=== PATIENT | female | born 1960 | race Caucasian/White ===

== ENCOUNTER → 2020-01-11 12:32 | Outpatient (CLI) | payer OTHER, SELFPAY ==
--- NOTE | ~2020-01-11 | XR_ITS ---
EXAMINATION: XR knee LT 2V DATE: 01/11/2020 12:47 INDICATION: Left knee pain and swelling. TECHNIQUE: 2 views of left knee were obtained. COMPARISON: None. FINDINGS: Bone alignment is normal. No fracture. There is mild tricompartmental osteoarthritis. There is a moderate-sized knee joint effusion. IMPRESSION: 1. Mild left knee osteoarthritis. 2. Moderate-sized left knee joint effusion. Reviewed, dictated and finalized at location A. ER FIRST
== END ==
PROVIDERS: PCP Family Medicine; Visit Provider Family Medicine
DX: M79.89 Other specified soft tissue disorders (principal); M17.12 Unilateral primary osteoarthritis, left knee; M25.462 Effusion, left knee
CPT/HCPCS: 73560

== ENCOUNTER 2023-05-18 12:31 | Outpatient (CLI) | payer OTHER, SELFPAY ==
[2023-05-18 19:16] LABS: Hematocrit 41.2 % (37.0-47.0); Hemoglobin 13.4 g/dL (12.0-15.0); Mean Corpuscular HGB Conc 32.5 g/dl (32-36); Mean Corpuscular Hemoglobin 29.5 pg (26-34); Mean Corpuscular Volume 90.5 fl (80-100); Mean Platelet Volume 10.8 fl (7.4-10.4); Platelet Count Result 240 k/mm3 (150-375); Red Blood Count 4.55 M/mm3 (4.2-5.4); White Blood Count 7.1 K/mm3 (4.5-10.0)
[2023-05-18 19:34] LABS: Alanine Aminotransferase 40 U/L (6-35); Albumin Level 4.4 g/dL (3.5-5.1); Alkaline Phosphatase 102 U/L (38-126); Anion Gap 8 mmol/L (8-16); Aspartate Amino Transferase 44 U/L (14-36); Bilirubin,Total 0.6 mg/dL (0.2-1.3); Blood Urea Nitrogen 14 mg/dL (7-17); Carbon Dioxide 30 mmol/L (22-30); Chloride 96 mmol/L (98-107); Estimated Glomerular Filt Rate 42; Glucose 105 mg/dL (65-110); Sodium 134 mmol/L (137-145)
== END 2023-05-18 12:32 | disposition home or self-care (01) ==
LOC: ANHGOSHLAB 12:32
PROVIDERS: PCP Family Medicine; Visit Provider Nurse Practitioner
DX: R50.9 Fever, unspecified (principal)
CPT/HCPCS: 36415; 80053; 85027

== ENCOUNTER → 2023-05-18 12:43 | Outpatient (CLI) | payer OTHER, SELFPAY ==
--- NOTE | ~2023-05-18 | XR_ITS ---
Clinical Indication: Cough, shortness of breath PA and lateral views of the chest: Comparison: 11/11/2006 Findings: The lungs are clear, without evidence of focal consolidation or pleural effusion. Cardiome diastinal silhouette is within normal limits. Bones stable S-shaped scoliosis of the spine. Impression: Clear lungs. Stable scoliosis. Reviewed, dictated and finalized at location . Impression: Clear lungs. Stable scoliosis.
== END ==
PROVIDERS: PCP Family Medicine; Visit Provider Nurse Practitioner
DX: R05.9 Cough, unspecified (principal); R06.02 Shortness of breath; R50.9 Fever, unspecified; M41.9 Scoliosis, unspecified
CPT/HCPCS: 71046

== ENCOUNTER → 2023-06-10 16:25 | Outpatient (CLI) | payer OTHER, SELFPAY ==
--- NOTE | ~2023-06-10 | MM_ITS ---
EXAMINATION: MM screening avila BI w manjit HISTORY: Screening mammogram TECHNIQUE: Craniocaudal and mediolateral oblique 3-D tomosynthesis images were obtained and synthetic 2-D images were generated. CAD analysis was submitted and interpreted. COMPARISON: No prior mammogram is available for comparison at this institution. BREAST PARENCHYMAL COMPOSITION: The breasts are heterogeneously dense, which may obscure small masses . FINDINGS: There is no evidence of suspicious mass, calcification, or architectural distortion to sugg est malignancy in either breast. There has been no suspicious interval change. IMPRESSION: 1. No mammographic evidence of malignancy. 2. Recommend routine screening mammography in one year. BI-RADS Category 1: Negative Reviewed, dictated and finalized at location A.
== END ==
PROVIDERS: PCP Family Medicine; Visit Provider Family Medicine
DX: Z12.31 Encounter for screening mammogram for malignant neoplasm of breast (principal)
CPT/HCPCS: 77063; 77067

== ENCOUNTER 2023-08-08 05:53 | Day surgery (SDC) | payer OTHER, SELFPAY ==
[2023-04-26 11:02] VITALS: BMI 30.2
[2023-07-26 08:14] VITALS: BMI 30.2
[2023-08-08] MEDS: LACTATED RINGERS 1,000 ML 150 ML IV CONT (06:20)
--- NOTE | 2023-08-08 06:53 | P.HP_ITS ---
History of Present Illness History of Present Illness Consent: Risks, benefits, and alternatives have been discussed and questions answered. Patient agrees to proceed with procedure. Chief complaint: Neoplasm Screening Narrative: Valery Bocanegra is a 63 year old female Ten years ago referred now for colon cancer screening. She does have a family history of polyps. Review of Systems Review of Systems: All systems reviewed & are unremarkable except as noted in HPI and below PMFSH Past Medical History Medical History History of psoriasis had a psoriatic lesion on neck around 2017 Surgical History Surgical History History of endometrial ablation 2011-Dr. Franco Family History Family History Mother Hypertension Diabetes mellitus Father Diabetes mellitus Cerebrovascular accident Heart disease Grandparent Diabetes mellitus Heart disease Sibling Cancer Social History Social History Social History: Caffeine- none Smoking status: Never smoker Alcohol intake: current Alcohol use details: socially Substance use: never Substance use type: does not use Lack of Transportation: No Lack of Food: Never True Current Housing: I Have Housing Concerned About Future Housing: No Difficulty Paying Gas/Electric Bills: No Difficulty Paying for Meds: No Currently Unemployed: No Education: Decline to Answer Difficulty w/ Childcare or Family Care: No Living arrangements: with family Additional living arrangements comments: 28 year old Daughter Occupation/Education: occupation 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 Gender identity (if verbalized by the patient): Female Sexual Orientation (if Verbalized by the Patient): Straight or Heterosexual Spiritual care concerns: No Meds Home Medications and Allergies Home Medications Medication Instructions Recorded Confirmed Type tofacitinib 10 mg tablet (Xeljanz) 10 mg PO ONCE 01/04/22 08/08/23 History Allergies Allergy/AdvReac Type Severity Reaction Status Date / Time Penicillins Allergy Unknown family Verified 08/08/23 06:12 allergy Exam Resp: Auscultation: clear to auscultation bilaterally Cardio: Rate: regular rate Rhythm: regular rhythm GI: GI Palp: Yes Soft to palpation and No Tenderness to palpation present (GI) Assessment and Plan Assessment and plan (1) Screen for colon cancer: Code(s): Z12.11 - Encounter for screening for malignant neoplasm of colon Status: Acute Assessment and Plan: Colonoscopy with possible biopsy or polypectomy or cautery or injection of substances.
--- NOTE | 2023-08-08 07:05 | WPDANESEPPF ---
Anes - Initial Pre Proc Eval Procedure: Operation Date: 08/08/23 07:30 Proposed Procedures p Screening Colonoscopy - Frederick Jones MD Date/Time: 08/08/23 07:05 Surgeon: Frederick Jones MD Pre Op Diagnosis: Neoplasm Screening Patient Data Age: 63 Gender: F Height: 1.57 m Weight: 71 kg Allergies Allergy/AdvReac Type Severity Reaction Status Date / Time Penicillins Allergy Unknown family Verified 08/08/23 06:12 allergy Home Medications Medication Instructions Recorded Confirmed Type tofacitinib 10 mg tablet (Xeljanz) 10 mg PO ONCE 01/04/22 08/08/23 History Patient hx anesthesia problems: none Family hx anesthesia problems: none Results Review: All pre-operative results and documents have been reviewed as part of the pre-operative evaluation. [facility] Past Medical History Medical History History of psoriasis had a psoriatic lesion on neck around 2017 Surgical History Surgical History History of endometrial ablation 2011-Dr. Franco Family History Family History Mother Hypertension Diabetes mellitus Father Diabetes mellitus Cerebrovascular accident Heart disease Grandparent Diabetes mellitus Heart disease Sibling Cancer Social History Social History Social History: Caffeine- none Smoking status: Never smoker Alcohol intake: current Alcohol use details: socially Substance use: never Substance use type: does not use Lack of Transportation: No Lack of Food: Never True Current Housing: I Have Housing Concerned About Future Housing: No Difficulty Paying Gas/Electric Bills: No Difficulty Paying for Meds: No Currently Unemployed: No Education: Decline to Answer Difficulty w/ Childcare or Family Care: No Living arrangements: with family Additional living arrangements comments: 28 year old Daughter Occupation/Education: occupation 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 Gender identity (if verbalized by the patient): Female Sexual Orientation (if Verbalized by the Patient): Straight or Heterosexual Spiritual care concerns: No Anes - Eval Final PreProcedure Day of Procedure 08/08/23 07:05 Patient weight: overweight Heart: regular rate and rhythm Lungs: clear to auscultation Airway: Mallampati scale class II Neurological: alert and oriented Last oral intake: >/= 8 hours ASA classification: II Emergent: no Anesthetic plan: proceed Anesthesia type and monitoring: general GIVS and standard monitoring Results Review: All pre-operative results and documents have been reviewed as part of the pre-operative evaluation. Informed Consent: The patient's anesthetic plan and its attendant risks and benefits were discussed with the patient/family/POA. Questions were solicited and answers provided to the satisfaction of the patient/family/POA.
[2023-08-08 07:18] VITALS: BP 129/91; PULSE 85; RESP 20; TEMP 36.7; O2SAT 100
[2023-08-08 07:42] VITALS: BP 112/61; PULSE 85; RESP 20; O2SAT 97
[2023-08-08 07:52] VITALS: BP 108/72; PULSE 73; RESP 20; O2SAT 97
[2023-08-08 08:02] VITALS: BP 137/77; PULSE 66; RESP 20; O2SAT 97
--- NOTE | 2023-08-08 10:35 | WPDANESPN ---
Anes - Prog Note Post-Op Date/Time: 08/08/23 10:35 Cardiovascular status: normal Respiratory status: normal Airway patency: baseline Mental status: baseline Post-Op hydration status: normal Vital Signs: Last Vital Signs Temp 36.7 C 08/08/23 07:18 Pulse 66 08/08/23 08:02 Resp 20 08/08/23 08:02 BP 137/77 08/08/23 08:02 Pulse Ox 97 08/08/23 08:02 O2 Del Method Room Air 08/08/23 08:02 Pain Score (VAS): 0 I/O: Intake & Output 08/07/23 08/08/23 08/08/23 23:59 07:59 15:59 Intake Total 400 100 Balance 400 100 Post-procedural complaints: none Patient Feedback: Patient satisfied with anesthetic care. Other Findings: Patient vital signs back to baseline. Patient denies nausea and vomiting. Patient's pain under control. Patient OK for discharge.
== END 2023-08-08 08:10 | disposition home or self-care (01) ==
PROVIDERS: PCP Family Medicine; Visit Provider Internal Medicine Gastroenterology
PROC: 0DJD8ZZ Inspection of Lower Intestinal Tract, Via Natural or Artificial Opening Endoscopic (ICD-10-PCS; CPT 45378; principal; 2023-08-08 07:30)
DX: Z12.11 Encounter for screening for malignant neoplasm of colon (principal); K57.30 Diverticulosis of large intestine without perforation or abscess without bleeding; K64.8 Other hemorrhoids
CPT/HCPCS: 45378

== ENCOUNTER 2025-08-02 13:41 | Outpatient (CLI) | payer OTHER, SELFPAY ==
--- NOTE | ~2025-08-02 | MM_ITS ---
EXAMINATION: MM screening avila BI w manjit HISTORY: Screening TECHNIQUE: Craniocaudal and mediolateral oblique 3-D tomosynthesis images were obtained and synthetic 2-D images were generated. CAD analysis was submitted and interpreted. COMPARISON: 06/10/2023 BREAST PARENCHYMAL COMPOSITION: The breasts are heterogeneously dense, which may obscure small masses. FINDINGS: There is no evidence of suspicious mass, calcification, or architectural distortion to suggest malignancy in either breast. IMPRESSION: 1. No mammographic evidence of malignancy. 2. Recommend routine screening mammography in one year. BI-RADS Category 1: Negative Reviewed, dictated and finalized at location B.
--- OUTSIDE RECORDS SUMMARY | 2025-08-02 13:45 | XMS_ITS | Clinical Summary ---
Author Organization [facility] Address [address] [place] [address] Care Team Providers Care Traffic Engineering Technician Name Role Phone Luis Albertoblancashauna Sally Jelly Primary Care Provider [phone] Allergies Active Allergy Reactions Criticality Noted Date Comments Penicillins Shortness of breath High Medications Symbicort 80-4.5 mcg/actuation inhaler INL 2 PFS PO Q 12 H 01/07/2020 Active multivitamin/iro n/folic acid (CENTRUM WOMEN ORAL) Take by mouth Active tofacitinib (Xeljanz XR) 11 mgIndications:Rh eumatoid arthritis involving multiple sites with positive rheumatoid factor (HCC) Take 1 tablet (11 mg total) by mouth daily 90 tablet 1 02/19/2025 Active Active Problems Problem Noted Date Diagnosed Date Rheumatoid arthritis involvi ng multiple sites with positive rheumatoid factor 09/04/2021 Asthma 04/10/2020 Resolved Problems Problem Noted Date Diagnosed Date Resolved Date Pyogenic arthritis of knee 06/10/2021 0 03/29/2022 Assessment & Plan (06/10/2021 7:18 PM CDT): - Bilateral knee pain and swelling has significantly improved since hospitalization. She has no erythema, warmth, or tenderness on exam. Denies systemic symptoms of infection - Repeat ESR and CRP with next lab draw - Continue IV vancomycin and ceftriaxone to complete 4 weeks of therapy for treatment of septic arthritis. FIRM STOP on 06/12. PICC line can be removed per home health at that time - Encouraged her to monitor closely for any signs or symptoms of recurrent infection after IV antibiotics have stopped. She will call ID clinic with any concerns - Discussed with patient the rational for treatment, culture results, risk of recurrent infection, signs/symptoms of recurrent infection, and to contact ID clinic with any questions or concerns Knee effusion, right 05/15/2021 022 Bronchitis 11/26/2015 04/10/2020 Overview (02/24/2017): Bronchitis Immunizations Immunization Administration Dates Next Due Flucelvax Influenza Quad 08/25/2020 Influenza, Quadrivalent, Deborah l Culture-based MDCK, Preservative Free, Antibiotic Free, Intramuscular 08/25/2020 Alfie (J&J) SARS-CoV-2 Vaccination 01/16/2021 ZOSTER Recombinant 11/25/2020,09/03/2020 Surgical History Surgery Date Site/Laterality Comments FLUORO GUIDED INJECTION ELBOW RIGHT 09/25/2019 Right ABLATION Medical History Medical History Date Comments Asthma Colitis Psoriasis Scoliosis Rheumatoid arthritis (HCC) Family History Medical History Relation Name Comments Cancer Brother Heart disease Father Stroke Father Diabetes Mother Hypertension Mother Arthritis Sister RA Relation Name Status Comments Brother Father Mother Sister Social History Tobacco Use Types Packs/Day Years Used Date Smoking Tobacco: Former Smokeless Tobacco: Never Alcohol Use Standard Drinks/Week Comments Yes 0 (1 standard drink = 0.6 oz pur e alcohol) AUDIT-C Answer Date Recorded Frequency of Alcohol Consumption Not on file 02/19/2025 Q2: How many drinks containi ng alcohol do you have on a typical day when you are drinking? 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 Not on file Obstetrics History Last Filed Vital Signs Vital Sign Reading Time Taken Comments Blood Pressure 167/106 02/19/2025 7:49 AM CDT Pulse 70 02/19/2025 7:49 AM CDT Temperature 36.8 C (98.3 F) 02/19/2025 7:49 AM CDT Respiratory Rate 20 12/22/2023 9:47 AM CARE SPECIALIST Oxygen Saturation 98% 02/19/2025 7:49 AM CDT Inhaled Oxygen Concentration - - Weight 63.4 kg (139 lb 12.8 oz) 02/19/2025 7:49 AM CDT Height 157.5 cm (5' 2) 02/19/2025 7:49 AM CDT Body Mass Index 25.57 02/19/2025 7:49 AM CDT Plan of Treatment Health Maintenance Due Date Last Done Comments Breast Cancer Screening-Mammogram 1960 Cervical Cancer Screening 1961 Colon Cancer Screening-Colonoscopy 1961 Hepatitis C Screening 1961 DTaP/Tdap/Td Vaccine (1 - Tdap) 1972 Hepatitis B Screening 1979 Regular Well Visit/Exam 18-64 1979 Pneumococcal vaccine <65 (1 of 2 - PCV) 1980 Depression Screening 05/14/2022 05/14/2021, 05/14/20 21 Covid-19 Vaccine (2 - season) 07/15/202503/2021 Influenza Vaccine (#1) 2025 3, 08/25/2020, 08/25/2020 Zoster Vaccine Completed 11/25/2020, 09/03/2020 Insurance [facility] CHO[facility] PLUS [facility] CHO[facility] PLUS [facility] CHO[facility] PLUS [facility] CHO[facility] PLUS Advance Directives For more information, please contact: [phone] * Full Code (Latest Code Status on File) Date Activated Date Inactivated Comments 05/15/2021 11:22 PM 05/21/2021 6:31 PM Care Teams Traffic Engineering Technician Relationship Specialty Start Date End Date Sally Gutiérrez DO PCP - General Family Medicine 04/10/20
== END 2025-08-02 13:42 | disposition home or self-care (01) ==
LOC: ANHFOHIMG 13:42
PROVIDERS: PCP Family Medicine; Visit Provider Family Medicine
DX: Z12.31 Encounter for screening mammogram for malignant neoplasm of breast (principal)
CPT/HCPCS: 77063; 77067

== ENCOUNTER 2025-10-14 10:39 | Outpatient (CLI) | payer OTHER, SELFPAY ==
--- NOTE | ~2025-10-14 | DEXA_ITS ---
Bone Density Report Name: CESAR FLORES Age: 65 Sex: Female Ethnicity: White Date of : 1960 Indication: postmenopausal; screening for osteoporosis; height loss; history of glucocorticoids; asthma or emphysema; rheumatoid arthritis; Referring Provider: OLIVIER MCCRACKEN Study: Bone densitometry was performed. Exam Date: October 14, 2025 Accession number: [id number] Bone Density: Region BMD T-score Z-score Classification AP Spine(L1, L2, L4) 0.818 -2.0 -0.3 Osteopenia Femoral Neck (Left) 0.592 -2.3 -0.8 Osteopenia Total Hip (Left) 0.738 -1.7 -0.5 Osteopenia Femoral Neck (Right) 0.671 -1.6 -0.1 Osteopenia Total Hip (Right) 0.758 -1.5 -0.3 Osteopenia Total Hip Mean 0.748 -1.6 -0.4 Osteopenia World Health Organization criteria for BMD impression classify patients as: Normal (T-score at or above -1.0), Osteopenia (T-score between -1.0 and -2.5), or Osteoporosis (T-score at or below -2.5). 10-year Fracture Risk(1): Major Osteoporotic Fracture 23% Hip Fracture 5.1% Reported Risk Factors: [place] (), Neck BMD=0.592, BMI=25.7, glucocorticoids, rheumatoid arthritis (1) FRAX(R) Version 3.08. Fracture probability calculated for an untreated patient. Fracture probability may be lower if the patient has received treatment. Clinical Information Provided by Patient: Has taken Glucocorticoids Has rheumatoid arthritis Has the following medical conditions: Asthma or Emphysema Patient maximum height was 63.0 Menopause Age: 51 No regular weight bearing exercise Drinks caffeinated beverages Onset of menses at age 13 Number of children 2 Missed period for more than 6 months in a row Impression: The patient has low bone mass, based on the Left Femoral Neck T-score. The patient has an estimated ten-year risk of hip fracture of 5.1% and an estimated ten-year risk of major fracture of 23%, based on the WHO FRAX algorithm. The patient has risk factors, including: history of glucocorticoid therapy. Discussion: BONE DENSITY IS LOW AT ONE OR MORE SKELETAL SITES. THE PATIENT'S BMD AND CLINICAL RISK FACTORS CONTRIBUTE TO THIS PATIENT'S HIGH RISK OF FRACTURE. This patient's lowest T-score is low at one or more skeletal sites. It meets the World Health Organization's (WHO) criteria for ?low bone mass? (T-score between -1.0 and -2.5). The patient's 10-year risk of hip fracture and 10 year risk of a major osteoporotic fracture as calculated by FRAX exceeds the threshold where pharmacological therapy is recommended by the National Osteoporosis Foundation (NOF). However, all treatment decisions require clinical judgment and consideration of individual patient factors, including patient preferences, comorbidities, previous drug use, risk factors not captured in the FRAX model (e.g., frailty, falls, vitamin D deficiency, increased bone turnover, interval significant decline in bone density) and possible under or overestimation of fracture risk by FRAX. The patient should follow a healthful lifestyle (good nutrition with adequate calcium and vitamin D, and appropriate weight-bearing exercise). Follow-Up: Consider a repeat BMD and Vertebral Fracture Assessment (VFA) exam in 2 years or sooner if medically necessary, to reassess this patient's status. Reported by: ANI on 10/15/2025 8:50:00 AM. Reviewed, dictated and finalized at location A.
--- OUTSIDE RECORDS SUMMARY | 2025-10-14 12:08 | XMS_ITS | Clinical Summary ---
Author Organization [facility] Address [address] [place] [address] Care Team Providers Care Veterans Services Specialist Name Role Phone Sally Gutiérreze Primary Care Provider [phone] Allergies Active Allergy Reactions Criticality Noted Date Comments Penicillins Shortness of breath, Other (See comments) High 03/05/2022 Medications multivitamin/iro n/folic acid (CENTRUM WOMEN ORAL) Take by mouth Active tofacitinib (Xeljanz XR) 11 mgIndications:Rh eumatoid arthritis involving multiple sites with positive rheumatoid factor (HCC) Take 1 tablet (11 mg total) by mouth daily 90 tablet 1 08/06/2025 Active Active Problems Problem Noted Date Diagnosed Date White coat syndrome without hypertension 025 Rheumatoid arthritis involvi ng multiple sites with [...] 022 Bronchitis 11/26/2015 04/10/2020 Overview (02/24/2017): Bronchitis Encounters Date Type Department Care Team Description 10/01/2025 Orders Only [facility] Scanning, Provider 08/06/2025 7:40 AM CDT Office Visit [facility] Medicine Rheumatology [address] [place] [address] Emelia Katz, RADIOLOGY SPECIAL PROCEDURE TECH Rheumatoid arthritis involving multiple sites with positive rheumatoid factor (HCC) (Primary Dx); High risk medication use from Last 3 Months Immunizations Immunization Administration Dates Next Due Flucelvax [...] Never Alcohol Use Standard Drinks/Week Comments Yes 1 (1 standard drink = 0.6 oz pur e alcohol) PHQ-2 Answer Date Recorded PHQ-2 Total Score (If total score is 3 or more points, staff should administer the PHQ-9) 0 05/15/2021 AUDIT-C Answer Date Recorded Q1: How often do you have a drink containing alc ohol? 2-4 times a month 08/06/2025 Q2: How many drinks containi ng alcohol do you have on a typical day when you are drinking? 1 or 2 08/06/2025 Q3: How often do you have si x or more drinks on one occasion? 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 on homer e Not on file Last Filed Vital Signs Vital Sign Reading Time Taken Comments Blood Pressure 159/99 08/06/2025 7:41 AM CDT Pulse 65 08/06/2025 7:41 AM CDT Temperature 36.6 C (97.9 F) 08/06/2025 7:41 AM CDT Respiratory Rate 20 12/22/2023 9:47 AM PLANER MILL GRADER Oxygen Saturation 99% 08/06/2025 7:41 AM CDT Inhaled Oxygen Concentration - - Weight 61.9 kg (136 lb 6.4 oz) 08/06/2025 7:41 A M CDT Height 157.5 cm (5' 2) 08/06/2025 7:41 AM CDT Body Mass Index 24.95 08/06/2025 7:41 AM CDT Plan of Treatment Health Maintenance Due Date Last Done Comments Breast Cancer Screening-Mammogram 1961 Cervical Cancer Screening 1961 Colon Cancer Screening-Colonoscopy 1961 Hepatitis C Screening 1961 DTaP/Tdap/Td Vaccine (1 - Tdap) 1972 Hepatitis B Screening 1979 Regular Well Visit/Exam 18-64 1979 Pneumococcal vaccine <65 (1 of 2 - PCV) 1980 Depression Screening 05/14/2022 05/14/2021, 05/14/20 21 Covid-19 Vaccine (4 - 2024-2 6 season) 2025 02/15/2022, 09/22/2021, 01/16/2021 Influenza Vaccine (#1) 2025 3, 08/25/2020, 08/25/2020, Additional history exists Zoster Vaccine Completed 11/25/2020, 09/03/2020 Procedures Procedure Name Priority Date/Time Associated Diagnosis Comments SCAN - LABS 10/01/2025 from Last 3 Months Results * SCAN - LABS (10/01/2025) us Provider Scanning Final Result from Last 3 Months Insurance [facility] CHO[facility] PLUS [facility] CHO[facility] PLUS [facility] CHO[facility] PLUS Advance Directives For more information, please contact: [phone] * Full Code (Latest Code Status on File) Date Activated Date Inactivated Comments 05/15/2021 11:22 PM 05/21/2021 6:31 PM Care Teams Veterans Services Specialist Relationship Specialty Start Date End Date Sally Gutiérrez DO PCP - General Family Medicine 04/10/20
== END 2025-10-14 10:40 | disposition home or self-care (01) ==
LOC: ANHFOHIMG 10:40
PROVIDERS: PCP Family Medicine; Visit Provider Obstetrics & Gynecology
DX: M85.88 Other specified disorders of bone density and structure, other site (principal); M85.852 Other specified disorders of bone density and structure, left thigh; M85.851 Other specified disorders of bone density and structure, right thigh
CPT/HCPCS: 77080